=== PATIENT | male | born 1980 | race Caucasian/White ===

== ENCOUNTER 2019-04-21 03:27 | Inpatient (IN) ==
[2019-04-21] MEDS ORDERED: Naloxone 0.4 MG/ML INJ IVP PRN (05:49)
[2019-04-21] MEDS ORDERED: Artificial Tears SOLN 15 ML BOTTLE BOTH EYES PRN (05:49)
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
[2019-04-21 06:19] LABS: ABG Base Excess 0 mEq/L (-2 to 3); ABG HCO3 25 mEq/L (21-27); ABG Oxygen Saturation 92 % (95-98); ABG PCO2 46 mmHg (35-45); ABG PH 7.35 pH Units (7.32-7.45); ABG PO2 68 mmHg (85-104); ABG TCO2 27 mEq/L (20-26); Blood Gas PEEP 5 cm H2O; Blood Gas VT 500 cc
[2019-04-21 08:14] LABS: Basophils # 0.1 K/mcL (0.0-0.2); Basophils % 0.4 %; Eosinophils # 0.4 K/mcL (0.0-0.6); Eosinophils % 2.5 %; Hematocrit 37.4 % (37.5-50.1); Hemoglobin 12.4 g/dL (12.9-16.9); Immature Granulocytes % 0.4 % (0-4); Lymphocytes # 3.4 K/mcL (0.6-4.6); Lymphocytes % 24.2 %; Mean Corpuscular HGB Conc 33.2 g/dL (31.6-35.5); Mean Corpuscular Hemoglobin 31.1 pg (28.0-33.3); Mean Corpuscular Volume 93.7 fL (83.0-100.0); Mean Platelet Volume 9.9 fL (9.4-12.4); Monocytes # 1.1 K/mcL (0.0-1.3); Monocytes % 7.7 %; Neutrophils # 9.2 K/mcL (1.6-8.9); Platelet Count 164 K/mcL (140-400); Red Blood Count 3.99 M/mcL (4.19-5.50); Red Cell Distribution Width 12.7 % (11.5-14.5); Segmented Neutrophils % 64.8 %; White Blood Count 14.2 K/mcL (4.3-11.1)
[2019-04-21 08:32] LABS: Acetaminophen < 10 mcg/mL (10-20); BUN/Creatinine Ratio 8 (6-26); Blood Urea Nitrogen 9 mg/dL (6-20); Calcium 8.8 mg/dL (8.6-10.3); Carbon Dioxide 29 mEq/L (23-29); Chloride 108 mEq/L (98-107); Glucose 86 mg/dL (70-105); Magnesium 2.1 mg/dL (1.6-2.6); Osmolality,Calculated 294 (280-300); Potassium 3.5 mEq/L (3.5-5.1); Salicylate < 2.5 mg/dL (15.0-30.0); Sodium 143 mEq/L (136-145); eGFR For African Americans > 60 (> 60); eGFR For Non-African Americans > 60 (> 60)
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
[2019-04-21 09:23] LABS: Hepatitis B Surface Antigen Nonreactive (Nonreactive)
[2019-04-21] MEDS ORDERED: D5% in Water 1,000 ML IVC PRN (09:23)
[2019-04-21] MEDS ORDERED: *HR* Dextrose 50 % in Water (Syg) 50 ML SYRINGE IVP PRN (09:23)
[2019-04-21] MEDS: Chlorhexidine Rinse 15 ML MOUTHWASH MM SCH ×2 (09:34→19:37)
[2019-04-21] MEDS: Artificial Tears SOLN 15 ML BOTTLE BOTH EYES SCH ×5 (09:34→23:08)
[2019-04-21] MEDS: Pantoprazole 40 MG VIAL IVP SCH (09:34)
[2019-04-21 09:51] LABS: Hepatitis B Core IgM Nonreactive (Nonreactive)
[2019-04-21 09:53] LABS: HIV-1&2 Antibody & p24 Ag Nonreactive (Nonreactive); Hepatitis A Antibody IgM Nonreactive (Nonreactive)
[2019-04-21 10:50] LABS: Estimated Average Glucose 117 mg/dl
[2019-04-21 11:47] LABS: Hepatitis C Virus Antibody Reactive (Nonreactive)
[2019-04-21] MEDS ORDERED: Insulin LISPRO 300 UNITS/3 ML VIAL SQ SCH (12:00)
[2019-04-21 14:54] LABS: Albumin 3.3 g/dL (3.5-5.7); Albumin/Globulin Ratio 1.4 (1.1-2.2); Bilirubin,Direct 0.1 mg/dL (0.0-0.2); Bilirubin,Indirect 0.2 mg/dL (0.0-1.2); Bilirubin,Total 0.3 mg/dL (0.3-1.0); Globulin 2.3 g/dL (2.4-3.5); Total Protein 5.6 g/dL (6.4-8.9)
[2019-04-21] MEDS: *HR* Heparin 5,000 UNIT/ML VIAL SQ SCH (17:36)
[2019-04-21] MEDS: Insulin LISPRO 300 UNITS/3 ML VIAL SQ SCH ×2 (19:37→23:08)
[2019-04-22] MEDS: Artificial Tears SOLN 15 ML BOTTLE BOTH EYES SCH ×2 (03:01→13:32)
[2019-04-22 04:34] LABS: ABG Base Excess 0 mEq/L (-2 to 3); ABG HCO3 25 mEq/L (21-27); ABG Oxygen Saturation 99 % (95-98); ABG PCO2 42 mmHg (35-45); ABG PH 7.39 pH Units (7.32-7.45); ABG PO2 118 mmHg (85-104); ABG TCO2 27 mEq/L (20-26); Blood Gas Modality ASSIST CONTROL; Blood Gas PEEP 5 cm H2O; Blood Gas VT 450 cc
[2019-04-22] MEDS: Insulin LISPRO 300 UNITS/3 ML VIAL SQ SCH (05:00)
[2019-04-22] MEDS: Pantoprazole 40 MG VIAL IVP SCH (05:01)
[2019-04-22] MEDS: *HR* Heparin 5,000 UNIT/ML VIAL SQ SCH ×2 (05:01→18:07)
[2019-04-22 10:35] LABS: Basophils # 0.1 K/mcL (0.0-0.2); Basophils % 0.4 %; Eosinophils # 0.3 K/mcL (0.0-0.6); Eosinophils % 2.1 %; Hemoglobin 13.9 g/dL (12.9-16.9); Immature Granulocytes % 0.4 % (0-4); Lymphocytes # 1.8 K/mcL (0.6-4.6); Lymphocytes % 14.4 %; Mean Corpuscular HGB Conc 33.1 g/dL (31.6-35.5); Mean Corpuscular Hemoglobin 30.8 pg (28.0-33.3); Mean Corpuscular Volume 92.9 fL (83.0-100.0); Mean Platelet Volume 10.3 fL (9.4-12.4); Monocytes # 0.7 K/mcL (0.0-1.3); Monocytes % 5.9 %; Neutrophils # 9.4 K/mcL (1.6-8.9); Platelet Count 164 K/mcL (140-400); Red Blood Count 4.52 M/mcL (4.19-5.50); Red Cell Distribution Width 13.1 % (11.5-14.5); Segmented Neutrophils % 76.8 %; White Blood Count 12.3 K/mcL (4.3-11.1)
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
[2019-04-22] MEDS ORDERED: Nicotine 21 MG PATCH.TD24 TD SCH (10:45)
[2019-04-22 10:55] LABS: BUN/Creatinine Ratio 8 (6-26); Blood Urea Nitrogen 8 mg/dL (6-20); Calcium 9.1 mg/dL (8.6-10.3); Carbon Dioxide 25 mEq/L (23-29); Chloride 111 mEq/L (98-107); Glucose 104 mg/dL (70-105); Osmolality,Calculated 295 (280-300); Potassium 3.9 mEq/L (3.5-5.1); Sodium 143 mEq/L (136-145); eGFR For African Americans > 60 (> 60); eGFR For Non-African Americans > 60 (> 60)
[2019-04-22] MEDS ORDERED: *HR* Dextrose 50 % in Water (Syg) 50 ML SYRINGE IVP PRN (11:24)
[2019-04-22] MEDS ORDERED: Naloxone 0.4 MG/ML INJ IVP PRN (11:24)
[2019-04-22] MEDS ORDERED: D5% in Water 1,000 ML IVC PRN (11:24)
[2019-04-22] MEDS: Chlorhexidine Rinse 15 ML MOUTHWASH MM SCH (13:32)
[2019-04-22] MEDS ORDERED: Nicotine 21 MG PATCH.TD24 TD ONE (17:55)
[2019-04-22] MEDS ORDERED: Ibuprofen 600 MG TABLET PO ONE (20:38)
[2019-04-22] MEDS ORDERED: Melatonin 3 MG TABLET PO PRN (23:16)
[2019-04-23] MEDS: *HR* Heparin 5,000 UNIT/ML VIAL SQ SCH ×2 (05:44→16:48)
--- NOTE | 2019-04-23 08:38 | Internal Med Progress Note ---
Hospitalist Progress Note - Encounter Date of Encounter: 04/23/19 - Exam Vitals: Temp Pulse Resp BP Pulse Ox 98.3 F 71 16 114/70 97 04/23/19 07:59 04/23/19 07:59 04/23/19 07:59 04/23/19 07:59 04/23/19 07:59 - Time Spent with Patient Total time spent is greater than 50% in coordination of care (as documented) at patient's floor/unit and/or counseling patient: Internal Medicine: Result - Labs CBC & Chem 7: 04/22/19 10:09 04/22/19 10:09 Labs: Short CBC 04/22/19 Range/Units 10:09 WBC 12.3 H (4.3-11.1) K/mcL Hgb 13.9 D (12.9-16.9) g/dL Hct 42.0 (37.5-50.1) % Plt Count 164 (140-400) K/mcL Neutrophils # 9.4 H (1.6-8.9) K/mcL BMP 04/22/19 10:09 Sodium 143 Potassium 3.9 Chloride 111 H Carbon Dioxide 25 BUN 8 Creatinine 0.96 Glucose 104 Calcium 9.1 - ABG Interpretation ABG results: ABG ABG pH 7.39 pH Units (7.32-7.45) 04/22/19 04:31 ABG pCO2 42 mmHg (35-45) 04/22/19 04:31 ABG pO2 118 mmHg (85-104) H 04/22/19 04:31 ABG O2 Saturation 99 % (95-98) H 04/22/19 04:31 Consult Discharge Plan - Plan Referrals: NONE,PCP [Primary Care Provider] -
[2019-04-23] MEDS ORDERED: Nicotine 21 MG PATCH.TD24 TD SCH ×2 (09:00→16:24)
[2019-04-23] MEDS ORDERED: Acetaminophen 325 MG TABLET PO PRN (10:03)
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
--- NOTE | 2019-04-23 15:26 | Discharge Summary ---
- NOTES TO OUTPATIENT PROVIDER Notes to Outpatient Provider: Patient was admitted on 04/21 for altered mental status secondary to opioid and benzodiazepine overdose as seen on urine toxicology. 2 mg of Narcan made the patient agitated and combative. He was sedated and intubated and subsequently extubated the following day. Mental ca pacity seemed normal on the . Serology showed hep C antibodies. Please refer to follow-up with GI on an outpatient basis. Thank you for continuing care of this patient. Orders not resulted at time of discharge: Pending orders 04/21/19 07:56 Culture,Blood [] Routine Date of Encounter: 04/23/19 Time of Encounter: 15:22 - Discharge Diagnosis (1) Metabolic encephalopathy Priority: Primary Status: Acute (2) Overdose Priority: Secondary Status: Acute Qualifiers: Encounter type: initial encounter Injury intent: undetermined intent Qualified Code(s): T50.904A - Poisoning by unspecified drugs, medicaments and biological substances, undetermined, initial encounter (3) Hepatitis C Priority: Secondary Status: Acute Qualifiers: Viral hepatitis chronicity: unspecified Hepatic coma status: without hepatic coma Qualified Code(s): B19.20 - Unspecified viral hepatitis C without hepatic coma Hospital course: Mr. Matias is a 39 year old male who presented to the [facility] ED on 04/21/19 as he was brought by family members after being found unconscious. No significant past medical history. Per chart the patient was found near syringes and admits to using marijuana regularly. He says that he does not use intravenous drugs or any other street drug then marijuana. In the ED he was given 2 mg of Narcan which made him very agitated so that he began attacking staff and spitting. He was intubated using a rocker with Ativan and etomidate. Urine toxicology was positive for benzodiazepines and opioids. CT of the head was negative. He was extubated the next day. The patient was found to have hep C. The girlfriend was concerned of suicide attempt so that a psych consult was placed. They found no evidence of suicidal or homicidal ideations. Patient is stable for discharge and should follow up with GI for newly discovered hep C. - Time Spent with Patient Total time spent providing and/or coordinating discharge services: - Discharge Medications Prescriptions: Continued No Known Home Drugs 1 each .ROUTE AD each Home Medications: No Known Home Drugs 04/21/19 [History] Allergies/Adverse Reactions: Allergy/AdvReac Type Severity Reaction Status Date / Time No Known Allergies Allergy Verified 04/21/19 12:50 Date of admission: 04/21/19 05:59 Primary care physician: PCP NONE Consults: 04/21/19 05:52 Consult to Critical Care [CONS] Routine Consulting Provider: [facility] Reason for Consult: vent management Call Completed: Yes 04/21/19 06:02 Consult to [facility] [CONS] Routine Reason for SW Consult: Suspected drug overdose 04/22/19 09:56 Consult to Psychiatry [CONS] Routine Consulting Provider: [facility] Reason consult: Other Other reason and/or additional details: overdose, possible Suicide attempt Call Completed: Yes Discharging clinician: Lisa Miles Anticipated date of discharge: 04/23/19 - Constitutional Vitals: Temp Pulse Resp BP Pulse Ox 98.3 F 71 16 114/70 97 04/23/19 07:59 04/23/19 07:59 04/23/19 07:59 04/23/19 07:59 04/23/19 07:59 Exam: gen: middle aged male no acute distress. skin: multiple tattoos cardiac: potential 2/6 murmur best heard over tricuspid valve. Respiratory: CTA throughout. Nonlabored breathing abd: Epigastric tenderness. Bowel sounds heard in the area. No hernia appreciated. psych: Answers questions coherently. Appropriate affect. - Patient Status Disposition: Home, Self-Care Condition: Fair Functional capacity at discharge: independent ambulation Overall status at discharge: patient is progressing back to baseline - Discharge Instructions Instructions: Narcotic Abuse (DC) Follow Up With: [facility] [Provider Group] (patient educated to call the [facility] tomorrow on 04/24/2019. Office is currently closed at this time and unable to request a appointment for this specialty. Call [phone]) Rafal Lowery MD [Partnered Physician] - (appointment has been requested. will call you at home with a follow up appointment. ) Forms: Inpatient Work/School Release Additional Instructions: -please stop taking ibuprofen and see a dentist DANIEL to get your teeth pulled -please go to a [facility] so that you can be treated for your Hep C -Thank you - Diet and Activity Activity: increase activity as tolerated Diet: advance to your usual diet
--- NOTE | 2019-04-23 17:51 | Event Note ---
Date of Encounter: 04/23/19 Time of Encounter: 09:20 to serve as attending attestation pending completion of resident discharge summary note. I examined this patient and my medical decision-making was reviewed with the Resident Physician Dr Gonzalez. I agree with the documented findings, disposition and treatment plan as described except to the extent set forth below. Mr Matias was admitted with overdose to ICU from [facility], suspected heroin. He required intubation and sedation. His course was uncomplicated. Given girlfriend reported a change in his mood in days prior to overdose and overdose in and of itself, psychiatry evaluated patient. I have confirmed with psych staff the pt has been seen by psych and team has d/w Dr Delgado and he does not require inpt psychiatric pt. He will dc to home today with outpt pcp fu and outpt mental health follow up as needed. awake,sitter at bedside, very pleasant. He has no complaints. Denies sob, cough, wheezing. no pain or abd pain. He will fu with gi regarding new hep c. he has no questions and is eager for dc. gen- alert, awake,appears stated age eyes- pupils equal round , no scleral icterus cv- reg rate and rhythm, normal s1,s2, no murmurs appreciated lungs- ctabl, no wheezing, rhonchi or crackles, ruben resp effort on ra abd- soft, non tender, non distended, + bs, no HSM neuro- AAOx3, CN grossly intact Overdose with Benzos and Opiates s/p extubation and course without complication -outpt mental health follow up as needed -he has been evaluated by psychiatry this admission and does not require inpt psychiatric stabilization Leukocytosis without fever or clinical s/s of infection- likely reactive to OD CXR neg, UA at [facility] reported to be unremarkable on admit, bl cxs ngtd Hypokalemia- resolved Hyperglycemia with reported hx prior DM not warranting any meds (likely type II)- A1C normal, fu with pcp New dx Hep C- fu with gi outpt time spent on discharge 40 min
== END 2019-04-23 17:11 | disposition home or self-care (01) | DRG 917 ==
LOC: ICNU → SUATTDRO 05:59 → 3ANU 04-22 13:21
PROVIDERS: ADMIT Pediatrics; ATTEND Internal Medicine